=== PATIENT | male | born 1975 | race Caucasian/White ===

== ENCOUNTER → 2020-10-28 | Outpatient (CLI) | payer BC ==
--- NOTE | 2020-10-29 03:23 | MR ---
EXAMINATION TYPE: MR brain wo/w con DATE OF EXAM: 10/28/2020 COMPARISON: None HISTORY: Involuntary movement of arms. CONTRAST: Standard multiplanar, multisequence MRI departmental protocol utilizing 8.5 mL intravenous Gadavist g adolinium contrast. Diffusion images show no evidence of an acute infarct. The ventricles have normal size. There is no m ass effect nor midline shift. There is no evidence of intracranial hemorrhage. There is some mucosal thickening in the maxillary sinuses. Saavedra-white matter structures have fairly normal signal pattern. There is no evidence of cerebral edema. The brainstem is intact. Contrast images show no pathologic enhancement. There is no evidence of orbital mass. Sella turcica a ppears normal. Corpus callosum appears normal. There is normal enhancement of the venous sinuses. IMPRESSION: Normal MR scan of the brain. Mild maxillary sinusitis.
== END | disposition home or self-care (01) ==
LOC: RADMRIMAIN 18:31
PROVIDERS: ATTEND Nurse Practitioner Family
DX: R25.1 Tremor, unspecified (principal); R27.8 Other lack of coordination
CPT/HCPCS: 70553; A9585